=== PATIENT | male | born 1940 | race Caucasian/White ===

== ENCOUNTER → 2016-07-05 | Outpatient (CLI) | payer MEDICARE, OTHER ==
[2016-07-05 10:56] LABS: BUN 17 mg/dL (7-18)
[2016-07-05 10:58] LABS: GFR (ESTIMATED) 73 ML/MIN (>60)
== END ==
LOC: LAB 09:50
PROVIDERS: Internal Medicine Adolescent Medicine
DX: E78.5 Hyperlipidemia, unspecified (principal); Z79.899 Other long term (current) drug therapy; Z51.81 Encounter for therapeutic drug level monitoring

== ENCOUNTER 2016-08-13 10:19 | Inpatient (IN) | payer MEDICARE, OTHER ==
[~2016-08-13] VITALS: Ht 182.9 cm; Wt 92.3 kg
[2016-08-13 10:25] VITALS: BP 105/67
[2016-08-13] MEDS ORDERED: DIGOX0.125 MG PO (10:30)
[2016-08-13] MEDS ORDERED: LOVASTATIN40 MG PO (10:31)
[2016-08-13] MEDS ORDERED: METFORMIN 500M500 MG PO (10:31)
[2016-08-13] MEDS ORDERED: XARELTO20 MG PO (10:31)
[2016-08-13] MEDS ORDERED: BISOPROLOL/HCTZ1 TA1 PO (10:32)
--- NOTE | 2016-08-13 10:41 | Emergency Room Report ---
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 N Clinical Suspician of Infection? N Mental Status: 1 - Regular (Normal Baseline) Sepsis Risk:Low Sepsis Risk Have you (or family members/close friends) recently traveled outside the [place]? N If Yes, where/when: Have you had exposure to infectious disease within the past month? TB? Other? Specify: Patient complains of a burning abnormal discomfort in his RIGHT upper quadrant and epigastric area for the past several days he states starting on Friday he states he's had anorexia he states things just don't taste RIGHT knee doesn't really want to eat or drink he's had nausea or vomiting associated with it as well. She still has his gallbladder. He states he ate some toast today. He denies any headache chest pain or any other pain or discomfort he states his RIGHT upper quadrant pain is mild in severity. He states he has had fever several days ago was 103 per his . He denies any cough he denies any diarrhea. He states he has had some runny nose. ALLERGIES Coded Allergies: No Known Allergies (08/13/16) Home Medications Reported Medications Digoxin (Digox) 0.125 MG PO DAILY #90 Lovastatin 40 MG PO DAILY #90 METFORMIN HCL (Metformin 500MG) 500 MG PO DAILY Rivaroxaban (Xarelto) 20 MG PO DAILY BISOPROLOL FUMARATE/HCTZ (Bisoprolol-Hctz 2.5-6.25 MG Tb) 1 TAB PO DAILY History Medical History General CAD? No Angina: No NH: No Hypertension? Yes Hyperlipidemia? Yes CHF? No DVT? No PE? No COPD? No Asthma? No Anemia? No GERD? No Gastric ulcers? No GI Bleed? No Hernia? No Thyroid Problems? No Hypothyroidism? No CVA? No Seizures? No Diabetes? Yes Insulin Dependent: No Insulin Pump: No Home FSBS? Yes Renal Insuffiency? No End Stage Renal Disease? No UTI? No Stones? No BPH? No GB Disease: No Nephritic Syndrome? No Asplenia? No Hepatitis? No Sickle Cell Disease? No Arthritis? No Migraines? No Cataracts? No Glaucoma? No MRSA? No HIV? No TB? No Anxiety? No Depression? No Cancer? No Site: N More? No Immunization Hx Ped.Immunizations UTD Yes DT/Tetanus 5-10 Years Ago Surgical Hx Previous Surgery?Y RIGHT EYE Social History Smoking Hx Smoker: Never Smoker Tobacco: No Type N/A Are you/the child exposed to second-hand smoke: No Review of Systems All Other Systems Reviewed and Negative Physical Exam Vital Signs Vital Signs Date Time Temp Pulse Resp B/P Pulse O2 O2 Flow FiO2 Ox Delivery Rate 08/13 1123 18 08/13 1025 98.3 93 18 105/67 98 General Appearance: Nontoxic Head: Normocephalic, without obvious abnormality, atraumatic. Eyes: conjunctiva/corneas clear ENT: Mucous membranes dry Neck: No jugular venous distention. Cardiac: regular rate and rhythm Lungs: Clear to auscultation bilaterally Abdomen: RIGHT upper quadrant tenderness and some lesser epigastric tenderness there is no tenderness at McBurney's point there is no lower quadrant tenderness , Nondistended, positive bowel sounds, no rebound : No CVA tenderness Extremities: no edema Musculoskeletal: No chest wall tenderness Skin: No rashes or lesions to exposed skin. Neurologic: Alert. No gross focal deficits Psychiatric: Normal affect (Gogo NELSON, Loyd) General Appearance normal appearance Respiratory Status No: respiratory distress. Cardiovascular normal exam Neurologic alert Medical Decision Making LABS/Meds/Orders Pt receiving controlled substance in ED? No Comment 101pm awaiting radiology read, pt family updated 119 dw radiology, distended with gb wall thickening, cw cholecystitis, call out to PMD and surgery Results/Orders Laboratory Tests 08/13/16 1305: Influenza Type A Ag Pending, Influenza Type B Ag Pending 08/13/16 1115: Sodium 134 L, Potassium 3.7, Chloride 97 L, Carbon Dioxide 27, BUN 30 H, Creatinine 1.6 H, Estimated Creat Clear 51, Estimated GFR (MDRD) 42, Glucose 239 H, Calcium 8.8, Total Bilirubin 0.9, AST 36, ALT 59, Alkaline Phosphatase 112, Creatine Kinase 28 L, CK-MB (CK-2) Rel Index 1.8, CK and CKMB Interp < 0.5 , Troponin I < 0.02, Total Protein 7.3, Albumin 2.7 L, Globulin 4.6 H, Albumin /Globulin Ratio 0.6 L, Amylase 17 L, Lipase 72 L, WBC 13.1 H, RBC 3.83 L, Hgb 12.4 L, Hct 36.4 L, MCV 94.9, RDW 13.3, Plt Count 334, MPV 5.8 L, Gran % 86.4 H, Gran # 11.3 H, Total Counted 100, Lymphocytes % 7.0 L, Monocytes % 6.5, Eosinophils % 0.1, Basophils % 0.1, Neutrophils 89 H, Band Neutrophils 1, Lymphocytes (Manual) 9 L, Lymphocytes # 0.9, Monocytes (Manual) 1 L, Monocytes # 0.8, Eosinophils # 0.0, Basophils # 0.0, Platelet Estimate NORMAL, PUBS MCHC 33.8, MCH 32.1 H Current Medication Orders Sig/Bharathi Start time Last Medication Dose Route Stop Time Status Admin Ertapenem 1 GM ONCE ONE 08/13 1330 AC Sodium Chloride 50 ML IV 08/13 1359 Famotidine 0 .STK-MED ONE 08/13 1121 DC IV Morphine Sulfate 0 .STK-MED ONE 08/13 1120 DC .ROUTE Ondansetron HCl 0 .STK-MED ONE 08/13 1120 DC .ROUTE Sodium Chloride 1,000 ML .STK-MED ONE 08/13 1120 DC IV Famotidine 20 MG ONCE ONE 08/13 1045 DC 08/13 IV 08/13 1046 1122 Morphine Sulfate 2 MG ONCE ONE 08/13 1045 DC 05 IV 08/13 1046 1123 Ondansetron HCl 4 MG ONCE ONE 08/13 1045 DC 08/13 IV 08/13 1046 1123 Sodium Chloride 1,000 ML .Q1H 08/13 1045 DC 08/13 IV 08/13 1243 1122 Sodium Chloride 10 ML PRN PRN 08/13 1045 AC IV 08/14 1043 Sodium Chloride 10 ML PRN PRN 08/13 1045 AC IV 08/14 1043 Sodium Chloride 8 ML ONCE ONE 08/13 1045 DC IV 08/13 1046 Orders Procedure Date/time Status DIFFERENTIAL-WBC 08/13 1115 Complete US ABD(COMPLETE-MULTI ORGANS 08/13 1046 Active CHEST(2 VIEWS-NOT PORTABLE) 08/13 1046 Active IV SALINE LOCK 08/13 1046 Active URINALYSIS/COMPLETE 08/13 1046 Active LIPASE 08/13 1046 Complete INFLUENZA A&B ANTIGENS 08/13 1046 Active COMPLETE METABOLIC PANEL 08/13 1046 Complete CBC WITH AUTO DIFF 08/13 1046 Complete CARDIAC ENZYMES 08/13 1046 Complete AMYLASE 08/13 1046 Complete Departure Departure Time of Disposition 1318 Disposition Still a Patient Clinical Impression Primary Impression: Cholecystitis Secondary Impressions: MICAELA (acute kidney injury), Dehydration Condition STABLE Referrals Dennis NELSON,Tyrell (Family) ED Critical Care Critical Care No at 1321
--- OUTSIDE RECORDS SUMMARY | 2016-08-13 10:54 | External Medical Summary Rpt ---
Author Author , Organization [employer] Address Unknown Phone Unavailable Purpose Continuity of Care Document - through 2016 Problems Code Diagnosis DOS Provider Status E78.5 HYPERLIPIDE KERMIT, UNSPECIFIED I48.91 UNSPECIFIED ATRIAL FIBRILLATIO N R73.9 HYPERGLYCEM IA, UNSPECIFIED
--- OUTSIDE RECORDS SUMMARY | 2016-08-13 10:55 | External Medical Summary Rpt ---
Demographics Preferred Language Senegalese Marital Status Unknown Synagogue Affiliation Unknown Race Unknown Ethnic Group Unknown Author Author , Organization [employer] Address Unknown Phone Unavailable Purpose Continuity of Care Document - through 2016 Immunization No patient found.
--- OUTSIDE RECORDS SUMMARY | 2016-08-13 10:55 | External Medical Summary Rpt ---
Author Author [employer] [facility], [employer] Organization [employer] Address Unknown Phone Unavailable
--- OUTSIDE RECORDS SUMMARY | 2016-08-13 10:55 | External Medical Summary Rpt ---
Author Author [employer] Organization [employer] Address Unknown Phone Unavailable Purpose Continuity of Care Document - through 2016
--- OUTSIDE RECORDS SUMMARY | 2016-08-13 10:55 | External Medical Summary Rpt ---
Demographics Preferred Language Georgian Marital Status Unknown Holiness Affiliation Unknown Race Unknown Ethnic Group Unknown Author Author , Organization [employer] Address Unknown Phone Unavailable Purpose Continuity of Care Document - through 2016 Immunization No patient found.
--- OUTSIDE RECORDS SUMMARY | 2016-08-13 11:09 | External Medical Summary Rpt ---
Demographics Preferred Language Macanese Marital Status Unknown Mormonism Affiliation Unknown Race Unknown Ethnic Group Unknown Author Author , Organization [employer] Address Unknown Phone Unavailable Purpose Continuity of Care Document - through 2016 Immunization No patient found.
--- OUTSIDE RECORDS SUMMARY | 2016-08-13 11:09 | External Medical Summary Rpt ---
Demographics Preferred Language Puerto Rican Marital Status Unknown Jewish Affiliation Unknown Race Unknown Ethnic Group Unknown Author Author , Organization [employer] Address Unknown Phone Unavailable Purpose Continuity of Care Document - through 2016 Immunization No patient found.
[2016-08-13 11:24] LABS: LYMPH # 0.9 K/mm3 (0.7-4.5)
[2016-08-13 11:29] LABS: HEMOGLOBIN 12.4 g/dL (14.1-18.0)
[2016-08-13 11:52] LABS: NEUTROPHILS 89 % (42-76)
[2016-08-13 11:53] LABS: BUN 30 mg/dL (7-18)
[2016-08-13 11:54] LABS: GFR (ESTIMATED) 42 ML/MIN (>60)
--- NOTE | 2016-08-13 13:22 | RADIOLOGY REPORT PS360 ---
US ABD(COMPLETE-MULTI ORGANS HISTORY: RUQ PAIN TENDERNESS ORDERING PHYSICIAN: Loyd Bowens MD PATIENT AGE: 76 years COMPARISON: None FINDINGS: PANCREAS:Unremarkable. No obvious mass or abnormal fluid collection. No ductal dilatation LIVER:No focal liver lesions demonstrated. Homogeneous echogenicity. No intrahepatic biliary ductal dilatation evident RIGHT KIDNEY:Unremarkable. Normal size and echogenicity. No hydronephrosis LEFT KIDNEY:Unremarkable. No hydronephrosis. Normal size and echogenicity. GALLBLADDER:Gallbladder is distended with thickened wall measuring up to 8 mm in thickness. Moderate amount sludge is present in the gallbladder and gallstone is also noted. No pericholecystic fluid is evident. The common bile duct is normal at 5 mm. AORTA:No evidence of aneurysmal dilatation. SPLEEN:Unremarkable. Normal size and echogenicity ASCITES:None demonstrated. IMPRESSION: Distended gallbladder with thickened wall along with sludge and cholelithiasis. Cholecystitis is a consideration. Clinical correlation is required.
--- OUTSIDE RECORDS SUMMARY | 2016-08-13 13:43 | External Medical Summary Rpt ---
Author Author , Organization [employer] Address Unknown Phone Unavailable Purpose Continuity of Care Document - through 2016 Problems Code Diagnosis DOS Provider Status E78.5 HYPERLIPIDE KERMIT, UNSPECIFIED E86.0 DEHYDRATION I48.91 UNSPECIFIED ATRIAL FIBRILLATIO N K81.9 CHOLECYSTIT IS, UNSPECIFIED N17.9 ACUTE KIDNEY FAILURE, UNSPECIFIED R73.9 HYPERGLYCEM IA, UNSPECIFIED
--- OUTSIDE RECORDS SUMMARY | 2016-08-13 13:43 | External Medical Summary Rpt ---
Demographics Preferred Language Wallisian Marital Status Unknown Sabianism Affiliation Unknown Race Unknown Ethnic Group Unknown Author Author , Organization [employer] Address Unknown Phone Unavailable Purpose Continuity of Care Document - through 2016 Immunization No patient found.
--- OUTSIDE RECORDS SUMMARY | 2016-08-13 13:43 | External Medical Summary Rpt ---
Demographics Preferred Language Bermudian Marital Status Unknown Denominational Affiliation Unknown Race Unknown Ethnic Group Unknown Author Author , Organization [employer] Address Unknown Phone Unavailable Purpose Continuity of Care Document - through 2016 Immunization No patient found.
--- NOTE | 2016-08-13 14:04 | RADIOLOGY REPORT PS360 ---
CHEST(2 VIEWS-NOT PORTABLE) HISTORY: PAIN ORDERING PHYSICIAN: Tyrell Collins MD PATIENT AGE: 76 years COMPARISON: None available FINDINGS: The cardiomediastinal silhouette and pulmonary vascularity are within normal limits. The lungs are clear without infiltrates, suspicious nodules, or pleural effusions. No acute bony abnormalities. IMPRESSION: Negative chest, no acute finding
[2016-08-13 14:55] VITALS: BP 120/70
[2016-08-13 14:59] VITALS: BP 120/70
--- NOTE | 2016-08-13 15:13 | CONSULT NOTE ---
Standard Demographics Patient Demo Date of Consultation: 08/13/16 Referring Provider: Tyrell Collins MD Reason for Consultation: CHOLECYSTITIS PRIMARY DIAGNOSIS: CHOLECYSTITIS Allergies: Coded Allergies: No Known Allergies (08/13/16) History of Present Illness Chief Complaint: Abdominal pain, anorexia History of Present Illness: Patient is a 76-year-old white male. He states that last Friday on 08/07/16 he had developed some sharp upper abdominal pains. He thought that he may have food poisoning. His symptoms had persisted. He did feel nauseated and had the need to vomit but never did so until yesterday evening. He never had diarrhea. He has had some early satiety and some anorexia. He had significant fevers several days ago. Due to the persistence of his symptoms and nature thereof he presented to the emergency department where he was seen and evaluated. He is found to have a leukocytosis. He underwent abdominal ultrasound which revealed findings of gallstones, gallbladder wall thickening, sludge consistent with cholecystitis. He was admitted for inpatient management and surgical consultation. Past Medical History Reports: hypertension, diabetes mellitus. Denies: CAD. Surgical History Previous Surgery?Y RIGHT EYE Allergies Coded Allergies: No Known Allergies (08/13/16) Medications: Reported Medications Digoxin (Digox) 0.125 MG PO DAILY #90 Lovastatin 40 MG PO DAILY #90 METFORMIN HCL (Metformin 500MG) 500 MG PO DAILY Rivaroxaban (Xarelto) 20 MG PO DAILY BISOPROLOL FUMARATE/HCTZ (Bisoprolol-Hctz 2.5-6.25 MG Tb) 1 TAB PO DAILY Smoking Hx Tobacco: No Smoker: Never Smoker Type: N/A Packs/day: N/A Are you/the child exposed to second-hand smoke: No Alcohol Alcohol: No Hx of Drug Use Drug Use? No Review of Systems Constitutional Positive for: fatigue. Skin No: contusions. Immune/allergy No: anaphalaxis. Eyes No: vision loss. ENT No: hearing loss. Respiratory No: shortness of air. Cardiovascular No: chest pain. GI Positive for: abdomen, anorexia, nausea. (male) No: hematuria. Musculoskeletal No: extremity pain. Heme No: bleeding. Endocrine No: cold intolerance. Neurological No: change in LOC. Physical Exam Exam General appearance no acute distress Respiratory clear to auscultation Cardiovascular abnormal S1 S2 Findings/Data On examination he has S1 and S2 with a systolic murmur. His abdomen is soft. He does have tenderness in the RIGHT upper quadrant without rebound. Plan Plan: Patient appears to have findings consistent with acute cholecystitis. Plan for IV fluid hydration and antibiotics at this time. Tentatively will consider cholecystectomy tomorrow. May need cardiology input. at [phone]
[2016-08-13 15:47] LABS: CORONAVIRUS 229E NOT DETECTED (NOT DETECTE); CORONAVIRUS HKU 1 NOT DETECTED (NOT DETECTE); CORONAVIRUS NL63 NOT DETECTED (NOT DETECTE); CORONAVIRUS OC43 NOT DETECTED (NOT DETECTE); RHINOVIRUS/ENTEROVIRUS NOT DETECTED (NOT DETECTE)
--- NOTE | 2016-08-13 16:25 | HISTORY AND PHYSICAL REPORT ---
Demographics: Admit date: 08/13/16 Chief complaint: abdominal pain, nausea, body aches, fever PRIMARY DIAGNOSIS: CHOLECYSTITIS Allergies: Coded Allergies: No Known Allergies (08/13/16) History of present illness: History of present illness: 76 year old white male with a history of hyperlipidemia and atrial fibrillation presented to the ED with a 6 day history of RUQ pain, nausea, body aches and fever. He denies cough, reports some mild congestion and clear rhinorrhea. He further reports loss of appetite and generalized weakness. Max temperature 103 orally, 2 days ago. In the ED, he was found to have leukocytosis with WBC 13. Creatinine was elevated at 1.6. Abdominal ultrasound showed cholelithiasis with thickening consistent with cholecystitis. Patient admitted to acute care for IV antibiotics, hydration and surgical evaluation. Past medical history: Family HX Diabetes Yes CAD Yes Hypertension No Hyperlipidemia No Cancer Yes TB Yes Immunization HX Ped.Immunizations UTD Yes DT/Tetanus 5-10 Years Ago Pneumonia Refuses TB Test in last year No General CAD? No Angina: No NH: No Hypertension? Yes Hyperlipidemia? Yes CHF? No DVT? No PE? No COPD? No Asthma? No Anemia? No GERD? No Gastric ulcers? No GI Bleed? No Hernia? No Thyroid Problems? No Hypothyroidism? No CVA? No Seizures? No Diabetes? Yes Insulin Dependent: No Insulin Pump: No Home FSBS? Yes Renal Insuffiency? No UTI? No Stones? No BPH? No GB Disease: No Nephritic Syndrome? No Asplenia? No Hepatitis? No Sickle Cell Disease? No Arthritis? No Migraines? No Cataracts? No Glaucoma? No MRSA? No HIV? No TB? No Anxiety? No Depression? No Cancer? No Site: N More? No Past Surgical HX Previous Surgery?Y RIGHT EYE Current home meds: Reported Medications Digoxin (Digox) 0.125 MG PO DAILY #90 Lovastatin 40 MG PO DAILY #90 METFORMIN HCL (Metformin 500MG) 500 MG PO DAILY Rivaroxaban (Xarelto) 20 MG PO DAILY BISOPROLOL FUMARATE/HCTZ (Bisoprolol-Hctz 2.5-6.25 MG Tb) 1 TAB PO DAILY Social Hx: Smoking HX Tobacco No Type N/A Packs/day N/A Are you/the child exposed to second-hand smoke: No Alcohol Alcohol: No Hx of Drug Use Drug Use? No Patien't marital status is Patient's support system is good Review of systems: Constitutional fever, malaise, weakness. Eyes No: no symptoms reported. Ears, Nose, Mouth, Throat No ear pain, drooling/excessive saliva, nose discharge, nose congestion, No epistaxis, No throat pain Respiratory No: no symptoms reported. Cardiovascular No no symptoms reported Gastrointestinal/Abdominal see HPI, abdominal pain, No blood streaked bowels, No diarrhea, nausea, poor appetite, poor fluid intake, No rectal bleeding Genitourinary No: no symptoms reported. Musculoskeletal other (body aches). Skin No: no symptoms reported. Neurological No: see HPI. Psychiatric No: no symptoms reported. Exam: Lab data for last 24 hours: Laboratory Tests 08/13/16 1305: Influenza Type A Ag NOT DETECTED, Influenza Type B Ag NOT DETECTED 08/13/16 1115: Sodium 134 L, Potassium 3.7, Chloride 97 L, Carbon Dioxide 27, BUN 30 H, Creatinine 1.6 H, Estimated Creat Clear 51, Estimated GFR (MDRD) 42, Glucose 239 H, Calcium 8.8, Total Bilirubin 0.9, AST 36, ALT 59, Alkaline Phosphatase 112, Creatine Kinase 28 L, CK-MB (CK-2) Rel Index 1.8, CK and CKMB Interp < 0.5 , Troponin I < 0.02, Total Protein 7.3, Albumin 2.7 L, Globulin 4.6 H, Albumin /Globulin Ratio 0.6 L, Amylase 17 L, Lipase 72 L, WBC 13.1 H, RBC 3.83 L, Hgb 12.4 L, Hct 36.4 L, MCV 94.9, RDW 13.3, Plt Count 334, MPV 5.8 L, Gran % 86.4 H, Gran # 11.3 H, Total Counted 100, Lymphocytes % 7.0 L, Monocytes % 6.5, Eosinophils % 0.1, Basophils % 0.1, Neutrophils 89 H, Band Neutrophils 1, Lymphocytes (Manual) 9 L, Lymphocytes # 0.9, Monocytes (Manual) 1 L, Monocytes # 0.8, Eosinophils # 0.0, Basophils # 0.0, Platelet Estimate NORMAL, PUBS MCHC 33.8, MCH 32.1 H Admission vital signs: 1ST Vital Signs Result Date Time Pulse Ox 98 08/13 1025 B/P 105/67 08/13 1025 Temp 98.3 08/13 1025 Pulse 93 08/13 1025 Resp 18 08/13 1025 O2 Delivery ROOM AIR 08/13 1455 Exam General appearance: normal appearance Eyes: anicteric ENT: mucous membranes moist Neck: normal inspection, non-tender, no carotid bruit Cardiovascular: regular rate & rhythm, 3/6 holosystolic murmur Respiratory: aerating well, clear to auscultation, good air movement ABD: non-distended, normal bowel sounds, soft, RUQ tenderness, no rebound Genitourinary: no dysuria, no hematuria Extremities: moves all Musculoskeletal: equal muscle strength Skin: dry, intact 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 Cholecystitis Assessment/Plan Continue Invanz. See Dr. Reyes's note. Plan for possible cholecystectomy tomorrow. Cardiology consulted for surgical clearance. Marixarelto held at this time. 2. MICAELA (acute kidney injury) Assessment/Plan IV hydration. Hold HCTZ. Recheck BMP in the am. Plan: see above at [id number]
[2016-08-13 20:06] VITALS: BP 123/69
[2016-08-14] VITALS (16 sets, daily range): BP systolic 96–146; BP diastolic 57–80
[2016-08-14 06:53] LABS: LYMPH % 8.6 % (10-50)
--- NOTE | 2016-08-14 07:19 | SURGEON PROGRESS NOTE ---
Subjective data Subjective data: MALLIKA GOODSON is a 76 M .Patient denies complaint of nausea and vomitting.He reports his last pain level as 0 on a 0-10 pain scale. Patient mainly complains of being hungry. No major complaints. Assessment findings Assessment Exam General appearance: normal appearance, alert ABD: soft, tenderness Patient plan Plan: Antibiotics Additional data: Patient on antibiotics for acute cholecystitis. Pending cardiology consultation for risk assesment and "clearance" for cholecystectomy. at 0718
--- NOTE | 2016-08-14 07:21 | PHARMACY CLINIC NOTE ---
Patient Demographics Patient Demographics Admission date: 08/13/16 Date: 08/14/16 Time: 0720 Allergies Coded Allergies: No Known Allergies (08/13/16) HEIGHT- FT: 6 IN: 0.00 K.714 VTE General Information Labs: Laboratory Tests 08/13 1115 Hematology Hgb (14.1 - 18.0 g/dL) 12.4 L Hct (42.0 - 52.0 %) 36.4 L Plt Count (142 - 424 K/mm3) 334 Disclaimer The following section includes nursing documentation that has been pulled in for pharmacy review. Patient's VTE score: 1 Patient's VTE Risk: VERY LOW RISK Clinical trial participant? No VTE prophylaxis [facility] 0371 VTE prophylaxis ordered? Yes Type of prophylaxis/treatment: WES at 0720
--- NOTE | 2016-08-14 07:21 | PHARMACY CLINIC NOTE ---
Patient Demographics Patient Demographics Admission date: 08/13/16 Date: 08/14/16 Time: 0720 Allergies Coded Allergies: No Known Allergies (08/13/16) HEIGHT- FT: 6 IN: 0.00 K.714 VTE General Information Labs: Laboratory Tests 08/13 1115 Hematology Hgb (14.1 - 18.0 g/dL) 12.4 L Hct (42.0 - 52.0 %) 36.4 L Plt Count (142 - 424 K/mm3) 334 Disclaimer The following section includes nursing documentation that has been pulled in for pharmacy review. Patient's VTE score: 1 Patient's VTE Risk: VERY LOW RISK Clinical trial participant? No VTE prophylaxis [facility] 0371 VTE prophylaxis ordered? Yes Type of prophylaxis/treatment: WES at 0720
[2016-08-14 07:25] LABS: HEMOGLOBIN 10.5 g/dL (14.1-18.0)
[2016-08-14 07:34] LABS: BILIRUBIN, INDIRECT 0.5 mg/dL (0-0.9)
--- NOTE | 2016-08-14 07:48 | ACUTE CARE PROGRESS NOTE (QUA) ---
Progress Notes Subjective Date 08/14/16 Time 0746 Note Overall patient had a fairly good night sleep except that he is "hungry" but has had no chest pain or dyspnea. Pulse rate remains regular. Abdomen soft, minimal right upper quadrant tenderness. Objective Findings Last VS-Temp:98.1 B/P:131/80 Pulse:99 Resp:16 SaO2:97 ROOM AIR Last weight lbs:193 oz:6 K.714 Method:Bed Scales Assessment/Plan Problem List 1. Cholecystitis 2. MICAELA (acute kidney injury) Patient condition Improving Plan: continue current care, cardiology evaluation. Agree with note. Echocardiogram before surgery. This inpt stay is expected to cross 2 MNs from start of care No at 0747
--- NOTE | 2016-08-14 07:49 | CONSULT NOTE ---
See Addendum Standard Demographics Patient Demo Date of Consultation: 08/14/16 Referring Provider: Tyrell Collins MD Reason for Consultation: CHOLECYSTITIS, Pre-op evaluation PRIMARY DIAGNOSIS: CHOLECYSTITIS Problem list Problem list: 1. Aortic stenosis, moderate by echocardiogram, 02/2016 2. Remote tobacco use 3. Hypertension 4. History of atrial fibrillation for which he is on Xarelto therapy. 5. Hyperlipidemia 6. Diabetes mellitus 7. History of stress test, 2007, no ischemia. A. Stress Echo, 2010, 8 min to 97% of predicted Heart rate without chest pain. Interventricular septal hypertrophy without obstruction noted. History of present illness: History of present illness: 76 year old white male with a history of hyperlipidemia and atrial fibrillation presented to the ED with a 6 day history of RUQ pain, nausea, body aches and fever. He denies cough, reports some mild congestion and clear rhinorrhea. He further reports loss of appetite and generalized weakness. Max temperature 103 orally, 2 days ago. In the ED, he was found to have leukocytosis with WBC 13. Creatinine was elevated at 1.6. Abdominal ultrasound showed cholelithiasis with thickening consistent with cholecystitis. Patient admitted to acute care for IV antibiotics, hydration and surgical evaluation. The above per Dorcas Gu APRN for Dr. Collins. Cardiology consulted for preoperative evaluation and recommendations. Patient denies any recent chest pain, near syncope or syncopal symptoms. Past Medical History: General: Hypertension Yes CVA No Seizures No TB No COPD No Asthma No Diabetes Yes Insulin Dependent No Insulin Pump No Angina No KS No Hyperlipidemia Yes Cancer No Ulcers No MRSA No GB Disease No Past Surgical HX: Previous Surgery?Y RIGHT EYE Allergies Coded Allergies: No Known Allergies (08/13/16) Home medications: Reported Medications Digoxin (Digox) 0.125 MG PO DAILY #90 Lovastatin 40 MG PO DAILY #90 METFORMIN HCL (Metformin 500MG) 500 MG PO DAILY Rivaroxaban (Xarelto) 20 MG PO DAILY BISOPROLOL FUMARATE/HCTZ (Bisoprolol-Hctz 2.5-6.25 MG Tb) 1 TAB PO DAILY Current Medications: Current Medications Ertapenem 1 GM 1300 IV Sodium Chloride 50 ML Bisoprolol Fumarate 2.5 MG DAILY PO Digoxin 0.125 MG DAILY PO Sodium Chloride 1,000 ML .STK-MED ONE IV (DC) Famotidine 20 MG BID IV Sodium Chloride 8 ML BID IV Sodium Chloride 1,000 ML .STK-MED ONE IV (DC) Sodium Chloride 10 ML PRN PRN IV Morphine Sulfate 2 MG Q2HP PRN IV Ondansetron HCl 4 MG Q6HP PRN IV Sodium Chloride 1,000 ML .[id number] IV Ertapenem 0 .STK-MED ONE .ROUTE (DC) Sodium Chloride 50 ML .STK-MED ONE IV (DC) Ertapenem 1 GM ONCE ONE IV (DC) Sodium Chloride 50 ML Famotidine 0 .STK-MED ONE IV (DC) Morphine Sulfate 0 .STK-MED ONE .ROUTE (DC) Ondansetron HCl 0 .STK-MED ONE .ROUTE (DC) Sodium Chloride 1,000 ML .STK-MED ONE IV (DC) Famotidine 20 MG ONCE ONE IV (DC) Morphine Sulfate 2 MG ONCE ONE IV (DC) Ondansetron HCl 4 MG ONCE ONE IV (DC) Sodium Chloride 1,000 ML .Q1H IV (DC) Sodium Chloride 10 ML PRN PRN IV (DC) Sodium Chloride 10 ML PRN PRN IV (DC) Sodium Chloride 8 ML ONCE ONE IV (DC) Immunization HX Ped.Immunizations UTD Yes DT/Tetanus 5-10 Years Pneumonia Refuses TB Test in last year No Family history Family HX Family Hx Insignificant No Diabetes Yes CAD Yes Hypertension No Hyperlipidemia No Cancer Yes TB Yes Social Hx: Smoking HX Tobacco No Type N/A Packs/day N/A Are you/the child exposed to second-hand smoke: No Alcohol Alcohol: No Hx of Drug Use Drug Use? No Comment: Moved to this area from [place] in 2016. Review of systems: Constitutional see HPI, chills, fever, malaise, weakness. Respiratory No: no symptoms reported. Cardiovascular No no symptoms reported Gastrointestinal/Abdominal see HPI, abdominal pain, diarrhea, nausea, poor appetite Genitourinary No: no symptoms reported. Musculoskeletal No: no symptoms reported. Neurological No: no symptoms reported. Exam: Admission Vital Signs: 1ST Vital Signs Result Date Time Pulse Ox 98 08/13 1025 B/P 105/67 08/13 1025 Temp 98.3 08/13 1025 Pulse 93 08/13 1025 Resp 18 08/13 1025 O2 Delivery ROOM AIR 08/13 1455 Last Vital Signs: Vital Signs Result Date Time Pulse Ox 97 08/14 440 B/P 131/80 08/14 440 O2 Delivery ROOM AIR 08/14 440 Temp 98.1 08/14 440 Pulse 99 08/14 440 Resp 16 08/14 440 Exam General appearance: alert, awake, no acute distress Neck: no carotid bruit, no JVD Cardiovascular: regular rate & rhythm, harsh grade 3/6 systolic ejection murmur heard across the precordium consistent with aortic stenosis. Respiratory: clear to auscultation, good air movement ABD: soft, tenderness Extremities: moves all, no peripheral edema Neuro: alert, intact, oriented Laboratory data: Laboratory Tests 08/14/16 0610: Sodium 136, Potassium 3.8, Chloride 102, Carbon Dioxide 29, BUN 31 H, Creatinine 1.3, Estimated Creat Clear 61, Estimated GFR (MDRD) 54, Glucose 177 H, Calcium 8.4 L 08/14/16 0610: Total Bilirubin 0.8, Direct Bilirubin 0.30 H, Indirect Bilirubin 0.50, AST 30, ALT 47, Alkaline Phosphatase 100, Total Protein 6.4, Albumin 2.3 L, WBC 11.2 H , RBC 3.37 L, Hgb 10.5 L, Hct 32.5 L, MCV 96.4, RDW 13.5, Plt Count 324, MPV 6.1 L, Gran % 84.2 H, Gran # 9.5 H, Lymphocytes % 8.6 L, Monocytes % 6.8, Eosinophils % 0.2, Basophils % 0.1, Lymphocytes # 1.0, Monocytes # 0.8, Eosinophils # 0.0, Basophils # 0.0, PUBS MCHC 32.1, MCH 30.9 08/13/16 1540: Chlamy pneum (TEM-PCR) NOT DETECTED, Adenovirus (PCR) NOT DETECTED, B. pertussis DNA (PCR) NOT DETECTED, Coronavirus OC43 (PCR) NOT DETECTED, Coronavirus HKU1 ( PCR) NOT DETECTED, Coronavirus 229E (PCR) NOT DETECTED, Coronavirus NL63 (PCR) NOT DETECTED, Human Metapneumovir PCR NOT DETECTED, Influenza A (H1) PCR NOT DETECTED, Influ A (H1N1/09) PCR NOT DETECTED, Influenza A (H3) PCR NOT DETECTED, Influenza Type A (PCR) NOT DETECTED, Influenza Type B (PCR) NOT DETECTED, M. pneumoniae (PCR) NOT DETECTED, Parainfluenza 1 (PCR) NOT DETECTED, Parainfluenza 2 (PCR) NOT DETECTED, Parainfluenza 3 (PCR) NOT DETECTED, Parainfluenza 4 (PCR) NOT DETECTED, RSV (PCR) NOT DETECTED, Entero/Rhino (PCR) NOT DETECTED 08/13/16 1305: Influenza Type A Ag NOT DETECTED, Influenza Type B Ag NOT DETECTED 08/13/16 1115: Sodium 134 L, Potassium 3.7, Chloride 97 L, Carbon Dioxide 27, BUN 30 H, Creatinine 1.6 H, Estimated Creat Clear 51, Estimated GFR (MDRD) 42, Glucose 239 H, Calcium 8.8, Total Bilirubin 0.9, AST 36, ALT 59, Alkaline Phosphatase 112, Creatine Kinase 28 L, CK-MB (CK-2) Rel Index 1.8, CK and CKMB Interp < 0.5 , Troponin I < 0.02, Total Protein 7.3, Albumin 2.7 L, Globulin 4.6 H, Albumin /Globulin Ratio 0.6 L, Amylase 17 L, Lipase 72 L, WBC 13.1 H, RBC 3.83 L, Hgb 12.4 L, Hct 36.4 L, MCV 94.9, RDW 13.3, Plt Count 334, MPV 5.8 L, Gran % 86.4 H, Gran # 11.3 H, Total Counted 100, Lymphocytes % 7.0 L, Monocytes % 6.5, Eosinophils % 0.1, Basophils % 0.1, Neutrophils 89 H, Band Neutrophils 1, Lymphocytes (Manual) 9 L, Lymphocytes # 0.9, Monocytes (Manual) 1 L, Monocytes # 0.8, Eosinophils # 0.0, Basophils # 0.0, Platelet Estimate NORMAL, PUBS MCHC 33.8, MCH 32.1 H Plan: Assessment: 1. Cholecystitis by gallbladder ultrasound with abdominal pain, fever, elevated LFTs and decreased appetite. Planning surgical intervention. 2. Aortic stenosis, moderate by history 3. History of hypertension 4. Hyperlipidemia 5. Diabetes mellitus 6. Remote tobacco use 7. History of atrial fibrillation for which patient is on Xarelto therapy, electrocardiogram this admission shows sinus rhythm. 8. Anemia, mild Recommendations: 1. Will obtain echocardiogram to follow-up on a moderate aortic stenosis. If unchanged then he would be an acceptable risk for surgery. at 1209
[2016-08-14 15:29] LABS: HEMOGLOBIN 9.7 g/dL (14.1-18.0)
--- NOTE | 2016-08-14 15:57 | RADIOLOGY REPORT PS360 ---
PROCEDURE: 2-D M-mode and color Doppler study INDICATIONS FOR THE TEST: Chest pain COPD Heart Murmur+ Tobacco Smoking Palpitations Fatigue Syncope Edema Hypertension+Diabetes Mellitus+ Rheumatic Fever SOB CEDENO Obesity Hyperlipidemia+ Family History HD Additional History PATIENT INFORMATION HEIGHT: 72 WEIGHT:193 GENDER: Male B/P:105/67 2-D/M-MODE INTERPRETATION: 2-D MEASUREMENTS OBSERVED VALUES IN CMS Right Ventricular Dimension (RVDd) 2.7 Interventricular Septum (Thickness)(IVsd) 2.2 Left Ventricular Internal Dimensions(LVIDd) 3.6 Left Ventricular Posterior Wall (Thickness)(LVPWd) 1.9 Aortic Root 3.5 Aortic Cusp Separation 1.4 Left Atrial Dimensions (LAD) 3.7 2D 1. Left atrium is qualitatively mildly enlarged, left ventricle is normal size, there is moderate concentric left ventricular hypertrophy present, visually estimated ejection fraction of 55% with no obvious regional wall motion abnormality. 2. The right atrium is normal size, right ventricle is mildly enlarged with normal contractility. 3. The aortic valve is thickened and calcified with moderate reduction in the leaflet mobility. 4. The mitral valve has mild mitral calcification there is no mitral stenosis. 5. The tricuspid valve is structurally normal. 6. The pulmonic valve is not well visualized. 7. There is trivial pericardial effusion noted. DOPPLER INTERROGATION: 1. The maximum aortic out flow velocity recorded in this study across the aortic valve is 3.7 m/s resulting in a mean gradient across valve of 33 mmHg, this represents at least moderate aortic stenosis, there is no significant aortic insufficiency seen. 2. The mitral inflow velocity within normal range, there is no mitral stenosis, there is mild mitral regurgitation, grade 1 diastolic dysfunction seen without tissue Doppler evidence of raised left atrial pressure. 3. There is mild tricuspid regurgitation seen tricuspid regurgitant jet velocity is insufficient for calculation of the right ventricular systolic pressure. CONCLUSION: 1. Mildly enlarged left atrium, normal left ventricular size, moderate concentric left ventricular hypertrophy, visually estimated ejection fraction of 55% with no obvious regional wall motion abnormality, grade 1 diastolic dysfunction seen without Doppler evidence of raised left atrial pressure. 2. Thickened and calcified aortic valve with mean gradient across valve of 33 mmHg is consistent with moderate aortic stenosis there is no aortic insufficiency present. 3. Mild mitral and tricuspid regurgitation. 4. Trivial pericardial effusion noted.
--- NOTE | 2016-08-14 16:20 | Anesthesia Record ---
Anesthesia Record Part I Total IV fluids: 2400 EBL (ml): 700 Urine Output: 0 (NO ANTHONY FOR THE CASE) Units of blood given: 0 B/P: 102/60 % SaO2: 91 Pulse: 105 Resps: 16 Temp: 98.2 Patient is: Awake, Drowsy, Nasal O2, Stable Stable to PACU at: 1613 at 1620
--- NOTE | 2016-08-14 16:21 | Anesthesia Record ---
Anesthesia Record Part II Discharge time: 1643 Destination: Second Floor (STEP DOWN UNIT) PACU nurse assessment review? Yes Patient is: Awake, Nasal O2, Stable Anesthesia complications? No at 9348
[2016-08-14 16:25] LABS: ABO BLOOD TYPE O; RH BLOOD TYPE POSITIVE
--- NOTE | 2016-08-14 16:29 | Operative Note ---
Surgeon/Diagnoses Surgeon/Corporate Logistics Manager(s) Date of procedure: 08/14/16 Surgeon: Juan Miguel Reyes Corporate Logistics Manager(s): Lorelei Briceno Diagnoses Pre-op diagnosis: Acute cholecystitis Post-op diagnosis Same Procedure Procedure Procedure: 1. Diagnostic laparoscopy 2. Open cholecystectomy Indications: MALLIKA GOODSON is a 76 year-old Male with a history of abdominal pain for about 6 days. This began after eating on 08/07/16. He had developed some epigastric pain. He thought he may have food poisoning. He felt the need to vomit. His symptoms persisted and became progressively more severe. He had developed some significant fevers to 103 degrees Fahrenheit at home. He had presented to the emergency department ultimately due to his symptomatology on 08/13/16. He was found have a leukocytosis with RIGHT upper quadrant tenderness. Gallbladder ultrasound was performed which revealed findings of thickened gallbladder with gallstones and sludge. He was admitted for inpatient management and surgical consultation was obtained. Patient had findings of cholecystitis. He had a prior history of atrial fibrillation and aortic stenosis. He was started on intravenous antibiotics. Cardiology was consult for risk stratification. He was "cleared" after echocardiogram was performed. Plan was made for cholecystectomy. Findings: Patient had essentially phlegmon around the gallbladder with dense adhesions. All bladder was massively distended and markedly thickened. There was evidence of necrosis of the gallbladder with some abscess within the gallbladder. The antrum of the stomach was densely adherent to the gallbladder initially. Procedure Description: Consent was obtained and patient was taken to the operating room. He was given preoperative intravenous antibiotics. In the operating room he was placed in a supine position. Gen. anesthesia was induced via endotracheal tube. His abdomen was prepped and draped in the standard surgical fashion. Subumbilical skin incision was made and while performing abdominal wall lifted the Veress needle was inserted. CO2 pneumoperitoneum was achieved to 15 mmHg. 10/11 mm optical trocar was inserted at the umbilicus. Intraperitoneal contents were visualized. He had a large mass like effect in the RIGHT upper quadrant with edematous appearing omentum adherent. Patient was positioned in reverse Trendelenburg LEFT side down. A couple of 5 mm trochars were inserted in the RIGHT upper abdomen and 10 mm trocar was inserted epigastrium. The omentum, which was densely adherent to the phlegmon this mass like lesion of the gallbladder, was partially dissected free. Prolonged dissection was carried out and there appeared to be some necrosis focally of the gallbladder. There was some purulent bile which exuded from the gallbladder and this was immediately suctioned free. This was followed by a significant amount of bile and mucus consistent with hydropic abscessed necrotic gallbladder. Prolonged dissection was performed without any significant progress or ability to identify even any normal anatomy of the gallbladder. Decision was made to convert to open procedure. Patient was positioned in neutral position. RIGHT upper quadrant incision was made. Dissection was carried down through subcutaneous tissues. Anterior fascia, muscle, and posterior fascia were incised with electrocautery entering the peritoneal cavity. Exposure was achieved. Retractors were inserted. Gallbladder was severely inflamed, extremely thickened, and necrotic. Dissection was carried out with a significant amount of blunt dissection bluntly dissecting free omental adhesions from the gallbladder body. The antrum of the stomach was densely adherent near the neck of the gallbladder and this was able to be dissected free.. In the adherent gastroepiploic vessels. There was some minor oozing from this and this was controlled with a single 4-0 Prolene figure-of- eight suture. Gallbladder was dissected free from the liver in a top-down fashion as it was difficult to identify any normal anatomy near the neck of the gallbladder. This was done using electrocautery initially followed by mostly blunt dissection. Ultimately dissection was carried out the neck of the gallbladder and the apparent cystic artery and cystic duct were identified. Cystic artery was multiply clipped and sharply divided. Cystic duct was multiply clipped and then divided. Remaining attachments of the gallbladder peritoneum to the liver were incised sharply. Gallbladder was then passed off the table as a specimen. The gallbladder fossa and subhepatic space were then thoroughly irrigated and aspirated until clear. A 10 mm AI drain was placed within the gallbladder fossa in the subhepatic space to exit through one of the 5 mm trocar sites. It was secured with a 2-0 nylon suture. RIGHT upper quadrant incision was closed in 2 layers closing the fascia with 0 PDS. Fascia at the umbilicus was closed with 3-0 Vicryl. All incisions were closed with skin ashley. Clean dry sterile dressing was applied. EBL (ml): 700 Anesthesia: GETA Complications: None immediate Specimens: Gallbladder and contents. Disposition Disposition: To PACU. at [id number]
[2016-08-14 16:47] LABS: ANTIHUMAN GLOB CROSSMATCH COMPAT
[2016-08-14 17:39] LABS: URINE BILIRUBIN - DIPSTICK NEGATIVE (NEG); URINE BLOOD NEGATIVE (NEG)
[2016-08-14 17:49] LABS: URINE SQUAMOUS CELLS OCC #/hpf (OCC)
[2016-08-14 18:20] LABS: HEMOGLOBIN 9.5 g/dL (14.1-18.0)
[2016-08-15] VITALS (30 sets, daily range): BP systolic 80–155; BP diastolic 32–92
[2016-08-15 06:16] LABS: HEMOGLOBIN 9.4 g/dL (14.1-18.0); LYMPH # 1.1 K/mm3 (0.7-4.5); LYMPH % 8.2 % (10-50)
--- NOTE | 2016-08-15 09:20 | POST-OP PROGRESS NOTE ---
Post op subjective data Subjective data: MALLIKA GOODSON is a 76 M . He is status post post op day # . His wound is healing well without signs symptoms of infection.He reports his last pain level as 0 on a 0-10 pain scale. Patient actually feels pretty well with no major complaints. No nausea taking ice chips with NG in place. Post op assessment findings Assessment Exam General appearance: normal appearance, alert ABD: soft Comment: AI with serosanguineous output. Post op patient plan Plan: Antibiotics, IV fluids This inpt stay is expected to cross 2 MNs from start of care Yes Additional data: LIA MCKINNON at 0994
--- NOTE | 2016-08-15 09:39 | ACUTE CARE PROGRESS NOTE (QUA) ---
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 AI drain with 200ML of bloody drainage since surgery. NG with 600ML drainage noted. Alert and oriented. Rate and rhythm regular with 3/6 holosystolic murmur. LS clear and equal. Abdomen with dressings to RUQ and umbilical area C/D/I, Moderately tender near incision. AI drainage in place. No distention. Bowel sounds hypoactive. Patient/family reports: pain Nursing reports: no complaints Objective Findings Last VS-Temp:97.5 B/P:106/60 Pulse:97 Resp:16 SaO2:97 OXYGEN Last weight lbs:198 oz:9 K.066 Method:Bed Scales Reviewed: medications, vital signs, lab results Assessment/Plan Problem List 1. Cholecystitis Assessment/Plan: Hemoglobin stable at 9.4 this morning. Cardiopulmonary exam is unremarkable. Continue abbott catheter for immobility. Continue IV antibiotics. Incentive spirometer provided to patient and he was encouraged to utilize every 1-2 hours. 2. MICAELA (acute kidney injury) Assessment/Plan: Improved, creatinine 1.4 today. Patient condition Stable Plan: continue current care (see above) This inpt stay is expected to cross 2 MNs from start of care Yes at 0939
--- NOTE | 2016-08-15 09:39 | ACUTE CARE PROGRESS NOTE (QUA) ---
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 AI drain with 200ML of bloody drainage since surgery. NG with 600ML drainage noted. Alert and oriented. Rate and rhythm regular with 3/6 holosystolic murmur. LS clear and equal. Abdomen with dressings to RUQ and umbilical area C/D/I, Moderately tender near incision. AI drainage in place. No distention. Bowel sounds hypoactive. Patient/family reports: pain Nursing reports: no complaints Objective Findings Last VS-Temp:97.5 B/P:106/60 Pulse:97 Resp:16 SaO2:97 OXYGEN Last weight lbs:198 oz:9 K.066 Method:Bed Scales Reviewed: medications, vital signs, lab results Assessment/Plan Problem List 1. Cholecystitis Assessment/Plan: Hemoglobin stable at 9.4 this morning. Cardiopulmonary exam is unremarkable. Continue abbott catheter for immobility. Continue IV antibiotics. Incentive spirometer provided to patient and he was encouraged to utilize every 1-2 hours. 2. MICAELA (acute kidney injury) Assessment/Plan: Improved, creatinine 1.4 today. Patient condition Stable Plan: continue current care (see above) This inpt stay is expected to cross 2 MNs from start of care Yes at 0939
[2016-08-15 10:05] LABS: NEUTROPHILS 84 % (42-76)
--- NOTE | 2016-08-15 11:36 | ACUTE CARE PROGRESS NOTE (QUA) ---
Progress Notes Subjective Date 08/15/16 Time 1132 Note 76-year-old white male sitting in bedside chair in no acute distress. States he is a little foggy due to the multiple IV morphine but no chest pain or shortness of breath. is in room with him. Objective Findings Last VS-Temp:97.9 B/P:100/41 Pulse:98 Resp:21 SaO2:91 OXYGEN Last weight lbs:198 oz:9 K.066 Method:Bed Scales Exam General appearance: alert, awake, no acute distress Cardiovascular: regular rate & rhythm, murmur Respiratory: clear to auscultation, basilar atelectasis than improves with deep breathing. Extremities: moves all, no peripheral edema Neuro: alert, intact, oriented Reviewed: medications, vital signs, lab results Assessment/Plan Problem List 1. Cholecystitis 2. MICAELA (acute kidney injury) 3. Aortic stenosis, moderate Assessment/Plan: Clinically stable. Patient condition Stable Plan: continue current medications. We'll follow with you. This inpt stay is expected to cross 2 MNs from start of care Yes at 1132
[2016-08-15 15:35] LABS: HEMOGLOBIN 8.9 g/dL (14.1-18.0)
[2016-08-15 23:49] LABS: HEMOGLOBIN 9.3 g/dL (14.1-18.0)
[2016-08-16] VITALS (22 sets, daily range): BP systolic 92–150; BP diastolic 53–94
[2016-08-16 06:13] LABS: LYMPH # 1.2 K/mm3 (0.7-4.5)
[2016-08-16 06:35] LABS: HEMOGLOBIN 10.5 g/dL (14.1-18.0)
--- NOTE | 2016-08-16 07:28 | ACUTE CARE PROGRESS NOTE (QUA) ---
Progress Notes Subjective Date 08/16/16 Time 0726 Note Overall patient feels better. AI drain is pulled yesterday. 2 units of packed cells were tolerated well. Patient is doing well from a pulmonary perspective. Yesterday was pulling 2 L on his incentive spirometer. Anterior lung weller are clear, heart rate regular. Abdomen is soft, much less tenderness around the incision site. No edema. Abbott catheter draining clear urine. Objective Findings Last VS-Temp:98.8 B/P:126/83 Pulse:82 Resp:18 SaO2:94 OXYGEN Last weight lbs:198 oz:4 K.925 Method:Bed Scales Assessment/Plan Problem List 1. Cholecystitis 2. MICAELA (acute kidney injury) 3. Aortic stenosis, moderate Patient condition Improving Plan: continue current care, Remove abbott, advance diet. This inpt stay is expected to cross 2 MNs from start of care Yes at 0735
[2016-08-16 08:04] LABS: NEUTROPHILS 86 % (42-76)
--- NOTE | 2016-08-16 08:18 | SURGEON PROGRESS NOTE ---
Subjective data Subjective data: MALLIKA GOODSON is a 76 M .Patient denies complaint of nausea and vomitting.He reports his last pain level as 0 on a 0-10 pain scale. Feels well. No complaints. No nausea; tolerated NG out. Received 2 units PRBCs yesterday. Moncada catheter out this morning. Assessment findings Assessment Exam General appearance: normal appearance, alert ABD: soft Patient plan Plan: Advance diet, Antibiotics at 0818
--- NOTE | 2016-08-16 08:36 | ACUTE CARE PROGRESS NOTE (QUA) ---
Progress Notes Subjective Date 08/16/16 Time 0833 Note 76 yo WM in bed in NAD. Ambulated yesterday without difficulty. No chest pains or SOA. Feeling better overall. Objective Findings Last VS-Temp:98.8 B/P:126/83 Pulse:82 Resp:18 SaO2:94 OXYGEN Last weight lbs:198 oz:4 K.925 Method:Bed Scales Exam General appearance: alert, awake, no acute distress Cardiovascular: regular rate & rhythm, murmur Respiratory: clear to auscultation Reviewed: medications, vital signs, lab results Assessment/Plan Problem List 1. Cholecystitis 2. MICAELA (acute kidney injury) 3. Aortic stenosis, moderate Assessment/Plan: Clinically stable. Patient condition Stable Plan: No further cardiac workup. Continue current meds. Follow up in 3-4 wks after discharge. This inpt stay is expected to cross 2 MNs from start of care Yes at 0836
[2016-08-17] VITALS (10 sets, daily range): BP systolic 90–146; BP diastolic 56–82
[2016-08-17 06:48] LABS: LYMPH # 1.7 K/mm3 (0.7-4.5); LYMPH % 14.8 % (10-50)
--- NOTE | 2016-08-17 07:36 | ACUTE CARE PROGRESS NOTE (QUA) ---
Progress Notes Subjective Date 08/17/16 Time 0728 Note No acute events overnight. This morning he is "sore" but without any other complaints. Was able to drink chicken broth and juice this morning without difficulty. Reports + flatus, no BM since surgery. No difficulty with urination other than urgency associated with dealing with all his monitoring wires/leads. Exam reveals a pleasant white male, awake and alert in bed. Heart rate is regular, 2/6 systolic murmur. Lungs with diminished bases but clear throughout. Abdomen is soft, nondistended, mildly tender upper abdomen, BS present. Dressing is intact, moist on the most right side of dressing. AI with sanginous drainage. Legs without edema, no warmth or tenderness, + pedal pulses. Oriented x 3. Patient/family reports: feeling better, pain Objective Findings Last VS-Temp:98.4 B/P:90/65 Pulse:82 Resp:15 SaO2:96 ROOM AIR Last weight lbs:203 oz:9 K.[id number] Method:Bed Scales Reviewed: medications, vital signs, lab results Assessment/Plan Problem List 1. Cholecystitis Assessment/Plan: Continue IV Invanz and follow with Dr Reyes. Advance diet per recommendations of surgeon. Will move from step-down today and stop continuous IV Fluids. H&H stable today, repeat again in AM. 2. MICAELA (acute kidney injury) 3. Aortic stenosis, moderate 4. Postoperative anemia Patient condition Improving, Stable Plan: continue current care This inpt stay is expected to cross 2 MNs from start of care Yes at 0735
--- NOTE | 2016-08-17 09:05 | SURGEON PROGRESS NOTE ---
Subjective data Subjective data: MALLIKA GOODSON is a 76 M .Patient denies complaint of nausea and vomitting.He reports his last pain level as 0 on a 0-10 pain scale. Patient feels quite well. No complaints. No pain. Tolerating clear liquids. Assessment findings Assessment Exam General appearance: normal appearance, alert ABD: soft Comment: Significant serosanguineous drainage once again from RUQ incision. Some erythema. 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 Will open RUQ incision at bedside. at 0904
--- NOTE | 2016-08-17 09:05 | SURGEON PROGRESS NOTE ---
Subjective data Subjective data: MALLIKA GOODSON is a 76 M .Patient denies complaint of nausea and vomitting.He reports his last pain level as 0 on a 0-10 pain scale. Patient feels quite well. No complaints. No pain. Tolerating clear liquids. Assessment findings Assessment Exam General appearance: normal appearance, alert ABD: soft Comment: Significant serosanguineous drainage once again from RUQ incision. Some erythema. Patient plan Plan: Antibiotics Additional data: Will DC GAS APPLIANCE SERVICER. Will open RUQ incision at bedside. at 0904
--- NOTE | 2016-08-17 09:23 | ACUTE CARE PROGRESS NOTE (QUA) ---
Progress note: - Removed several ashley and opened gaps in incision. Appreciable amount of serosanguineus fluid evacuated. Fascia intact. Sent cultures. Will start dressing changes. at 0910
[2016-08-18] VITALS (8 sets, daily range): BP systolic 143–158; BP diastolic 7–90
[2016-08-18 06:06] LABS: HEMOGLOBIN 10.5 g/dL (14.1-18.0); LYMPH # 1.8 K/mm3 (0.7-4.5); LYMPH % 18.3 % (10-50)
--- NOTE | 2016-08-18 08:56 | ACUTE CARE PROGRESS NOTE (QUA) ---
Progress Notes Subjective Date 08/18/16 Time 0849 Note Did well overnight. Took pain medication around 3AM per his report and it was effective, rested well. Tolerating liquid diet. + Flatus and no concern with urination. Labs this morning are improved with normal WBC, anemia stable with Hgb above 10. Potassium 3.3 Exam reveals pleasant male in NAD, sleeping but wakes easily. Heart with RRR, systolic murmur stable. Lungs clear with good air movement. Abdomen soft, mildly tender, + BS, AI drain with serosanguinous drainage and dressing has serosanguinous drainage as well. No extremity edema, redness or warmth, + pedal pulses. Patient/family reports: feeling better Nursing reports: no complaints Objective Findings Last VS-Temp:97.6 B/P:148/90 Pulse:82 Resp:18 SaO2:97 ROOM AIR Last weight lbs:203 oz:9 K.334 Method:Bed Scales Reviewed: medications, vital signs, lab results, consult note Assessment/Plan Problem List 1. Cholecystitis Assessment/Plan: Continue to follow with Dr Reyes - see his note from 08/17/16 when wound was opened and drained. Advance diet per his recommendations. Continue IV Invanz, WBC normal today. Cultures pending. Will replace potassium with 40mEq once today. 2. MICAELA (acute kidney injury) 3. Aortic stenosis, moderate 4. Postoperative anemia 5. Hypokalemia 6. Hyperglycemia Patient condition Improving, Stable Plan: make medication changes This inpt stay is expected to cross 2 MNs from start of care Yes at 0855
--- NOTE | 2016-08-18 09:30 | SURGEON PROGRESS NOTE ---
See Addendum Subjective data Subjective data: MALLIKA GOODSON is a 76 M .Patient denies complaint of nausea and vomitting.He reports his last pain level as 0 on a 0-10 pain scale. Patient without complaints. Tolerating full liquids without nausea or difficulty. Assessment findings Assessment Exam General appearance: normal appearance, alert ABD: soft, Decreased erythema Patient plan Plan: Advance diet, Antibiotics, Wound care at 0930
[2016-08-19 04:39] VITALS: BP 165/100
[2016-08-19 06:38] LABS: HEMOGLOBIN 10.5 g/dL (14.1-18.0); LYMPH # 1.7 K/mm3 (0.7-4.5); LYMPH % 17.8 % (10-50)
[2016-08-19 08:00] VITALS: BP 149/89
--- NOTE | 2016-08-19 08:03 | ACUTE CARE PROGRESS NOTE (QUA) ---
Progress Notes Subjective Date 08/19/16 Time 0759 Note Overall patient feels much better, has tolerated full liquid diet. Lungs are clear, excellent air expansion. Heart rate regular. No murmurs. No distal perfusion episodes. Abdomen is soft, bandage over reopen surgical incision is clean and dry. No significant tenderness around the surgical site. Objective Findings Last VS-Temp:97.8 B/P:165/100 Pulse:85 Resp:18 SaO2:98 ROOM AIR Last weight lbs:203 oz:9 K.334 Method:Bed Scales Assessment/Plan Problem List 1. Cholecystitis 2. MICAELA (acute kidney injury) 3. Aortic stenosis, moderate 4. Postoperative anemia 5. Hypokalemia 6. Hyperglycemia Patient condition Improving Plan: continue current care, consult shuttle repairer, continue follow-up, advance diet per surgery. This inpt stay is expected to cross 2 MNs from start of care Yes at 0803
--- NOTE | 2016-08-19 08:03 | ACUTE CARE PROGRESS NOTE (QUA) ---
Progress Notes Subjective Date 08/19/16 Time 0759 Note Overall patient feels much better, has tolerated full liquid diet. Lungs are clear, excellent air expansion. Heart rate regular. No murmurs. No distal perfusion episodes. Abdomen is soft, bandage over reopen surgical incision is clean and dry. No significant tenderness around the surgical site. Objective Findings Last VS-Temp:97.8 B/P:165/100 Pulse:85 Resp:18 SaO2:98 ROOM AIR Last weight lbs:203 oz:9 K.334 Method:Bed Scales Assessment/Plan Problem List 1. Cholecystitis 2. MICAELA (acute kidney injury) 3. Aortic stenosis, moderate 4. Postoperative anemia 5. Hypokalemia 6. Hyperglycemia Patient condition Improving Plan: continue current care, consult general dentist, continue follow-up, advance diet per surgery. This inpt stay is expected to cross 2 MNs from start of care Yes at 0803
--- NOTE | 2016-08-19 08:30 | SURGEON PROGRESS NOTE ---
Subjective data Subjective data: MALLIKA GOODSON is a 76 M .Patient denies complaint of nausea and vomitting.He reports his last pain level as 0 on a 0-10 pain scale. Doing well. No complaints. Feels the need to have a bowel movement but not results. Tolerating full liquid diet without nausea. Requests shower. Assessment findings Assessment Exam General appearance: normal appearance, alert, active ABD: soft Comment: Decreased wound erythema. Patient plan Plan: Advance diet Additional data: Will give some Miralax. Patient may shower. Will advance to low fat diet. DC home soon. at 0830
[2016-08-19 09:25] VITALS: BP 149/89
[2016-08-19 15:00] VITALS: BP 129/60
[2016-08-19 16:00] VITALS: BP 116/50; BP 125/62
[2016-08-19 19:50] VITALS: BP 129/60
[2016-08-20 04:05] VITALS: BP 130/67
--- NOTE | 2016-08-20 07:15 | SURGEON PROGRESS NOTE ---
Subjective data Subjective data: MALLIKA GOODSON is a 76 M .Patient denies complaint of nausea and vomitting.He reports his last pain level as 6 on a 0-10 pain scale. Patient does not feel well. He has had "diarrhea every hour". Started yesterday afternoon with some increasing abdominal pain. Assessment findings Assessment Exam General appearance: no acute distress ABD: soft, no tenderness Patient plan Plan: IV fluids, Stool Additional data: LIA Banegas Check stool for C. Diff at 0715
[2016-08-20 07:39] VITALS: BP 91/55
--- NOTE | 2016-08-20 07:41 | ACUTE CARE PROGRESS NOTE (QUA) ---
Progress Notes Subjective Date 08/20/16 Time 0715 Note Patient reports "diarrhea every hours" that started yesterday afternoon. He further reports some increase in abdomnal pain. He has some mild nausea, no vomiting. Alert and oriented. 3/6 holosystolic murmur. Trace ankle edema, pulses 2+ bilaterally. Lung sounds clear and equal thoughout. Abdomen, soft and mild tender around incisions. RUQ dressing clean, dry and intact. No distention. Hyperactive bowel sounds Patient/family reports: diarrhea Nursing reports: no complaints Objective Findings Last VS-Temp:98.7 B/P:130/67 Pulse:87 Resp:16 SaO2:94 ROOM AIR Last weight lbs:203 oz:9 K.334 Method:Bed Scales Reviewed: allergies, medications, vital signs, lab results Assessment/Plan Problem List 1. Cholecystitis Assessment/Plan: Status post cholecystecomy, continue dressing changes as indicated by Dr. Reyes 2. MICAELA (acute kidney injury) Assessment/Plan: Resolved, creatinine 0.8 yesterday 3. Aortic stenosis, moderate Assessment/Plan: Stable 4. Postoperative anemia Assessment/Plan: Improved, H/H 10.5/33.3 yesterday 5. Hypokalemia Assessment/Plan: Resolved, K+ 4.0 yesterday 6. Hyperglycemia Assessment/Plan: Will continue to monitor 7. Diarrhea Assessment/Plan: D/C Invanz per Dr. Reyes. Start probiotics. Obtain diarrhea PCR to evaluate for C. Diff and other underlying pathology. Patient condition Stable Plan: continue current care (see above) This inpt stay is expected to cross 2 MNs from start of care Yes at 0741
[2016-08-20 08:52] VITALS: BP 91/55
[2016-08-20 15:49] VITALS: BP 98/47
[2016-08-20 20:14] VITALS: BP 114/67
[2016-08-20 20:26] VITALS: BP 114/67
[2016-08-21 03:32] VITALS: BP 133/70
--- NOTE | 2016-08-21 06:59 | SURGEON PROGRESS NOTE ---
Subjective data Subjective data: MALLIKA GOODSON is a 76 M .Patient denies complaint of nausea and vomitting.He reports his last pain level as 0 on a 0-10 pain scale. Patient feels better with less diarrhea. Feels quite hungry this morning. No stool sent. Assessment findings Assessment Exam General appearance: normal appearance, alert ABD: soft Patient plan Plan: Possible DC Additional data: Patient may be able to discharge. Will need outpatient dressing changes with once daily plain 1" gauze. I will see in office on 08/26/16. at 0607
--- NOTE | 2016-08-21 08:25 | ACUTE CARE PROGRESS NOTE (QUA) ---
Progress Notes Subjective Date 08/21/16 Time 0823 Note Overall patient did very well overnight. Diarrhea has stopped. He's had no significant pain and has required no analgesia medications. No shortness of air, chest pain or palpitations. Patient awake, alert, heart rate regular. Normal valve sounds with soft holosystolic murmur as previously noted. Lungs are clear bilaterally. Abdomen is soft, minimal tenderness around the incision site. No extremity edema or clubbing. Objective Findings Last VS-Temp:98.9 B/P:133/70 Pulse:80 Resp:20 SaO2:97 ROOM AIR Last weight lbs:203 oz:9 K.334 Method:Bed Scales Assessment/Plan Problem List 1. Cholecystitis 2. MICAELA (acute kidney injury) 3. Aortic stenosis, moderate 4. Postoperative anemia 5. Hypokalemia 6. Hyperglycemia 7. Diarrhea Patient condition Improving Plan: continue current care, initiate discharge plan This inpt stay is expected to cross 2 MNs from start of care Yes at 0824
[2016-08-21] MEDS ORDERED: TYLENOL WITH CO1 TA1 PO (08:26)
--- NOTE | 2016-08-21 08:28 | DISCHARGE SUMMARY STANDARD ---
Demographics Admit date: 08/13/16 Discharge date: 08/21/16 History of present illness History of present illness 76 year old white male with a history of hyperlipidemia and atrial fibrillation presented to the ED with a 6 day history of RUQ pain, nausea, body aches and fever. He denies cough, reports some mild congestion and clear rhinorrhea. He further reports loss of appetite and generalized weakness. Max temperature 103 orally, 2 days ago. In the ED, he was found to have leukocytosis with WBC 13. Creatinine was elevated at 1.6. Abdominal ultrasound showed cholelithiasis with thickening consistent with cholecystitis. Patient admitted to acute care for IV antibiotics, hydration and surgical evaluation. Cardiology consulted for preoperative evaluation and recommendations. Patient denies any recent chest pain, near syncope or syncopal symptoms. Hospital Course Hospital Course: Patient was admitted, ultrasonography confirmed the presence of active gallbladder disease. Surgery was consulted. Cardiology was consulted, echocardiogram showed no change management consultant baseline and he was cleared for surgical procedure. Please see these notes as well as surgery notes. Briefly surgical procedure was unable to be done laparoscopically because of the diseased nature of the gallbladder and it was converted to an open procedure. However the procedure was very successful. Patient transported back to the floor in good condition. Standard postoperative monitoring was done. Patient did have a small amount of serous fluid that required reopening of the incision, again please see surgery notes, but no evidence of infection was noted. He was continued on postoperative antibiotics and did develop some diarrhea but this resolved after the antibiotics were stopped. Patient improved in a stepwise fashion. This morning he was doing great. He will be discharged home. Please see my discharge note for exam details as well as surgical progress note. He will be sent home on low-dose Tylenol 3 for pain, follow-up daily for dressing changes and follow-up with surgery in one week. Discharge diagnoses Problem List 1. Cholecystitis 2. MICAELA (acute kidney injury) 3. Aortic stenosis, moderate 4. Postoperative anemia 5. Hypokalemia 6. Hyperglycemia 7. Diarrhea Medications Medications: Discharge meds are as noted. Follow up Follow up in office in: 7 DAYS with: Juan Miguel Reyes MD at 0821
[2016-08-21 08:32] VITALS: BP 122/66
[2016-08-21 09:29] VITALS: BP 122/66
== END 2016-08-21 09:50 | disposition home or self-care (01) | DRG 416 ==
LOC: ER 10:19 → 2ND 13:40
PROVIDERS: Emergency Medicine; Internal Medicine Adolescent Medicine; Surgery
PROC: 0FJ44ZZ Inspection of Gallbladder, Percutaneous Endoscopic Approach (ICD-10-PCS; principal; 2016-08-14 13:00)
PROC: 0FT40ZZ Resection of Gallbladder, Open Approach (ICD-10-PCS; principal; 2016-08-14 13:00)
DX: K81.0 Acute cholecystitis (principal); I48.91 Unspecified atrial fibrillation; E11.9 Type 2 diabetes mellitus without complications; D64.89 Other specified anemias; I10 Essential (primary) hypertension; E87.6 Hypokalemia; Z79.01 Long term (current) use of anticoagulants; I35.0 Nonrheumatic aortic (valve) stenosis; Z87.891 Personal history of nicotine dependence
CPT/HCPCS: G0378; J0131; J1335; J2405; J2710; P9016

== ENCOUNTER 2016-08-22 11:25 | Outpatient (CLI) | payer MEDICARE, OTHER ==
[~2016-08-22 11:25] MED LIST: BISOPROLOL/HCTZ1 TA1 PO; DIGOX0.125 MG PO; LOVASTATIN40 MG PO; METFORMIN 500M500 MG PO; TYLENOL WITH CO1 TA1 PO; XARELTO20 MG PO
== END 2016-08-22 12:00 | disposition home or self-care (01) ==
LOC: COP 11:25
DX: Z51.89 Encounter for other specified aftercare (principal); Z48.01 Encounter for change or removal of surgical wound dressing
CPT/HCPCS: G0463

== ENCOUNTER 2016-08-23 12:06 | Outpatient (CLI) | payer MEDICARE, OTHER ==
[2016-08-23 12:05] VITALS: BP 138/75
== END 2016-08-23 12:30 | disposition home or self-care (01) ==
LOC: COP 12:06
DX: Z51.89 Encounter for other specified aftercare (principal); Z48.01 Encounter for change or removal of surgical wound dressing
CPT/HCPCS: G0463

== ENCOUNTER 2016-08-24 10:59 | Outpatient (CLI) | payer MEDICARE, OTHER | END 2016-08-24 12:40 | disposition home or self-care (01) | LOC: COP 10:59 | DX: Z51.89 Encounter for other specified aftercare (principal); Z48.01 Encounter for change or removal of surgical wound dressing | CPT/HCPCS: G0463 ==

== ENCOUNTER 2016-08-25 11:28 | Outpatient (CLI) | payer MEDICARE, OTHER | END 2016-08-25 11:40 | disposition home or self-care (01) | LOC: COP 11:28 | DX: Z51.89 Encounter for other specified aftercare (principal); Z48.01 Encounter for change or removal of surgical wound dressing | CPT/HCPCS: G0463 ==

== ENCOUNTER 2016-08-26 10:07 | Outpatient (CLI) | payer MEDICARE, OTHER ==
[2016-08-26 10:05] VITALS: BP 95/55
== END 2016-08-26 10:30 | disposition home or self-care (01) ==
LOC: COP 10:07
DX: Z51.89 Encounter for other specified aftercare (principal); Z48.01 Encounter for change or removal of surgical wound dressing
CPT/HCPCS: G0463

== ENCOUNTER 2016-08-27 10:05 | Outpatient (CLI) | payer MEDICARE, OTHER | END 2016-08-27 10:30 | disposition home or self-care (01) | LOC: COP 10:05 | DX: Z51.89 Encounter for other specified aftercare (principal); Z48.01 Encounter for change or removal of surgical wound dressing | CPT/HCPCS: G0463 ==

== ENCOUNTER 2016-08-28 10:12 | Outpatient (CLI) | payer MEDICARE, OTHER | END 2016-08-28 10:30 | disposition home or self-care (01) | LOC: COP 10:12 | DX: Z51.89 Encounter for other specified aftercare (principal); Z48.01 Encounter for change or removal of surgical wound dressing | CPT/HCPCS: G0463 ==

== ENCOUNTER → 2016-09-04 | Outpatient (CLI) | payer MEDICARE, OTHER | LOC: COP 09-03 10:00 | DX: Z51.89 Encounter for other specified aftercare (principal); Z48.01 Encounter for change or removal of surgical wound dressing | CPT/HCPCS: G0463 ==

== ENCOUNTER → 2016-09-04 | Outpatient (CLI) | payer MEDICARE, OTHER ==
--- NOTE | 2016-09-04 09:34 | CARDIOVASCULAR REPORT ---
"Cerebrovascular Exam Indications: 785.9 Bruit. IMPRESSIONS 1. The bilateral vertebral arteries are patent with normal antegrade flow. 2. Study suggests 20-49%(upper end of scale)stenosis involving the right internal carotid artery. 3. Study suggests 20-49% stenosis involving the left internal carotid artery. History: A bruit of the left carotid artery. A bruit of the right carotid artery. Risk factors: Hypertension. Hyperlipidemia. Carotid duplex study. Complete study and Doppler flow study including spectral analysis, color and oliva scale imaging. Height: Height: 182.9cm. Height: 72in. Weight: Weight: 86.2kg. Weight: 189.6lb. Body mass index: BMI: 25.8kg/m^2. Body surface area: BSA: 2.1m^2. Location: Vascular laboratory. Patient status: Outpatient. Tables: Arterial flow: + +--------+--------+ |Location |V sys |V ed | + +--------+--------+ |Right CCA - proximal|80.9cm/s|22.8cm/s| + +--------+--------+ |Right CCA - distal |118cm/s |35.4cm/s| + +--------+--------+ |Right ECA |95.9cm/s|--------| + +--------+--------+ |Right ICA - proximal|101cm/s |33cm/s | + +--------+--------+ |Right ICA - mid |130cm/s |43.2cm/s| + +--------+--------+ |Right ICA - distal |86.4cm/s|30.6cm/s| + +--------+--------+ |Right vertebral |57.4cm/s|--------| + +--------+--------+ |Left CCA - proximal |91.9cm/s|22cm/s | + +--------+--------+ |Left CCA - distal |92.7cm/s|25.1cm/s| + +--------+--------+ |Left ECA |98.2cm/s|--------| + +--------+--------+ |Left ICA - proximal |131cm/s |40.9cm/s| + +--------+--------+ |Left ICA - mid |90.4cm/s|29.9cm/s| + +--------+--------+ |Left ICA - distal |95.1cm/s|33cm/s | + +--------+--------+ |Left vertebral |50.3cm/s|--------| + +--------+--------+ Velocity ratios: + + + + + + | |Right, V sys|Right, V ed|Left, V sys|Left, V ed| + + + + + + |Max ICA/dist CCA|1.1 |1.22 |1.41 |1.63 | + + + + + + (Report amended ) Electronically signed by: Lazaro Alcocer [id number]"
== END ==
LOC: RT 08:36 → COP 10:00
DX: I35.0 Nonrheumatic aortic (valve) stenosis (principal); I10 Essential (primary) hypertension; I48.91 Unspecified atrial fibrillation; E78.5 Hyperlipidemia, unspecified; R09.89 Other specified symptoms and signs involving the circulatory and respiratory systems
CPT/HCPCS: G0463

== ENCOUNTER 2016-09-05 10:15 | Outpatient (CLI) | payer MEDICARE, OTHER | END 2016-09-05 10:45 | disposition home or self-care (01) | LOC: COP 10:15 | DX: Z51.89 Encounter for other specified aftercare (principal); Z48.01 Encounter for change or removal of surgical wound dressing | CPT/HCPCS: G0463 ==

== ENCOUNTER → 2016-12-14 | Outpatient (CLI) | payer MEDICARE, OTHER ==
[2016-12-14 08:54] LABS: LYMPH # 1.8 K/mm3 (0.7-4.5); LYMPH % 31.4 % (10-50)
[2016-12-14 08:57] LABS: HEMOGLOBIN 14.3 g/dL (14.1-18.0)
[2016-12-14 09:57] LABS: BUN 16 mg/dL (7-18)
[2016-12-14 10:07] LABS: GFR (ESTIMATED) 73 ML/MIN (>60)
== END ==
LOC: LAB 07:17
PROVIDERS: Internal Medicine Adolescent Medicine
DX: R73.9 Hyperglycemia, unspecified (principal); I48.91 Unspecified atrial fibrillation; E78.5 Hyperlipidemia, unspecified